=== PATIENT | female | born 1990 | race Caucasian/White ===

== ENCOUNTER 2024-12-21 10:52 | Outpatient (CLI) | payer MEDICAID, SELFPAY ==
--- NOTE | 2024-12-21 11:00 | US_ITS ---
PROCEDURE: US TRANSVAGINAL CLINICAL INDICATION: schedule for 2wk transvaginal ultrasound COMPARISON: No exams were available for comparison FINDINGS: Transvaginal sonographic images of the pelvis were obtained. UTERUS: 8.4cm x 6.1cmx 4.7 cm retroverted with a combined endometrial thickness of 12.6mm. The endometrium appears trilaminar LEFT OVARY: 2.9 cmx1.3cmx1.4cm with a volume of 2.8ml. There are multiple small peripheral follicles giving a polycystic appearance. RIGHT OVARY: 3.5 cmx 2.4cmx3.1cm with a volume of 13.5ml. There is a dominant follicle measuring 1.2 cm x 1.1 cm x 1.0 cm. There are multiple small peripheral follicles. Both ovaries are seen and appear normal. Doppler flow to both ovaries are seen. There is no fluid in the cul-de-sac. IMPRESSION: 1. Retroverted uterus normal in shape and size. The endometrium appears normal and trilaminar. 2. Both ovaries are seen and contain multiple small peripheral follicles. The right ovary contains a dominant follicle measuring 1.2 cm. Left ovary has a more polycystic appearance. 3. No fluid in the cul-de-sac. Dictated by: Cedric Chow MD 12/21/2024 14:00 Cedric Chow MD in [facility] 12/21/2024 14:00
== END 2024-12-21 23:59 | disposition home or self-care (01) ==
LOC: RAD 10:53
PROVIDERS: PCP Family Medicine; Visit Provider Obstetrics & Gynecology
DX: E28.2 Polycystic ovarian syndrome (principal); N85.4 Malposition of uterus; R10.2 Pelvic and perineal pain
CPT/HCPCS: 76830

== ENCOUNTER 2024-12-27 10:52 | Outpatient (CLI) | payer MEDICAID, SELFPAY ==
[2024-12-27 13:48] LABS: Thyroid Stimulating Hormone 0.93 uIU/mL (0.465-4.68)
[2024-12-27 17:32] LABS: Hemoglobin A1C 4.8 % (4.0-6.0)
[2024-12-28 10:12] LABS: FSH 4.1 mIU/mL (.); LH 3.4 mIU/mL (.)
== END 2024-12-27 23:59 | disposition home or self-care (01) ==
LOC: LAB 10:52
PROVIDERS: PCP Family Medicine; Visit Provider Obstetrics & Gynecology
DX: N93.9 Abnormal uterine and vaginal bleeding, unspecified (principal)
CPT/HCPCS: 36415; 82670; 83001; 83002; 83036; 84144; 84443